=== PATIENT | male | born 1980 | race Caucasian/White ===

== ENCOUNTER 2018-01-22 13:40 | Emergency (ER) | payer MEDICAID ==
[~2018-01-22] VITALS: Ht 170.2 cm; Wt 79.4 kg
[~2018-01-22 13:40] MED LIST: KEFLEX250 MG PO; LITHIUM CARBON300 M3 PO; PROTONIX40 M1 PO; SERTRALINE HCL50 MG PO; SYNTHROID100 MCG PO
[2018-01-22] MEDS ORDERED: TOBRADEX EYE DRO5 ML INTRAOCULR (14:09)
[2018-01-22 14:22] VITALS: BP 111/73
== END 2018-01-22 14:24 | disposition home or self-care (01) ==
LOC: M.ERS 13:40
DX: S05.02XA Injury of conjunctiva and corneal abrasion without foreign body, left eye, initial encounter (principal); Z88.0 Allergy status to penicillin; X58.XXXA Exposure to other specified factors, initial encounter; Y93.89 Activity, other specified; Y92.89 Other specified places as the place of occurrence of the external cause; Y99.8 Other external cause status

== ENCOUNTER 2018-10-09 22:58 | Emergency (ER) | payer MEDICAID ==
[~2018-10-09] VITALS: Ht 177.8 cm; Wt 94.5 kg
[~2018-10-09 22:58] MED LIST changes: +TOBRADEX EYE DRO5 ML INTRAOCULR
[2018-10-09 23:25] LABS: HEMATOCRIT 40.4 % (42.0-52.0); HEMOGLOBIN 13.5 gm/dL (14.0-18.0); MCH 29.3 pg (26.0-34.0); MCHC 33.4 g/dL (28.0-37.0); MCV 87.6 fL (80.0-100.0); MPV 8.2 fl. (7.2-11.1); RBC 4.61 mil/uL (4.50-6.00); RDW-CV 13.4 % (10.5-14.5); WBC 5.4 thou/uL (4.0-11.0)
[2018-10-09 23:46] LABS: URINE BILIRUBIN NEGATIVE (Negative); URINE BLOOD NEGATIVE (Negative); URINE CLARITY CLEAR; URINE COLOR YELLOW; URINE GLUCOSE-RANDOM NEGATIVE (Negative); URINE KETONES NEGATIVE (Negative); URINE LEUKOCYTES NEGATIVE (Negative); URINE NITRITE NEGATIVE (Negative); URINE PROTEIN NEGATIVE (Negative); URINE SPECIFIC GRAVITY <= 1.005 (1.005-1.030); URINE UROBILINOGEN 0.2 E.U./dl (0.2-1.0)
[2018-10-10 00:02] LABS: SALICYLATE < 2.8 mg/dL (2.8-20.0)
[2018-10-10 00:03] LABS: AMP/METHAMP Negative (Negative); BARBITURATES Negative (Negative); BENZODIAZEPINES Negative (Negative); COCAINE Negative (Negative); METHADONE Negative (Negative); OPIATES Negative (Negative); PCP Negative (Negative); THC Negative (Negative)
[2018-10-10 00:03] LABS: ACETAMINOPHEN < 2 ug/mL (10-30); ALCOHOL < 10 mg/dL (<10)
[2018-10-10 00:14] LABS: CALCIUM 8.5 mg/dL (8.5-10.1); CREATININE 1.1 mg/dL (0.6-1.3); POTASSIUM 3.7 mmol/L (3.5-5.1)
[2018-10-10 00:19] LABS: ALBUMIN 3.7 g/dL (3.4-5.0); TOTAL BILIRUBIN 0.6 mg/dL (<0.1-1.0); TOTAL PROTEIN 6.7 g/dL (6.4-8.2)
[2018-10-10 02:54] VITALS: BP 142/80
--- NOTE | 2018-10-10 11:10 | EKG ---
[place] [address] ELECTROCARDIOGRAM REPORT Name: KEITH TRIPATHI Room: [facility]#: [id number] Admission: 10/09/18 Attend Phys: Discharge: 10/10/18 Date of : 84 Report #: [id number] THIS REPORT FOR: //name// [facility] ED Test Date: 2018-10-09 Test Time: 23:42:22 Pat Name: KEITH TRIPATHI Department: Room: Gender: M [employer]: MATI : 1980 Requested By: Sis Tompkins Order Number: [id number] MD: Ruben Reich Measurements Intervals [place] Rate: 87 P: 6 AK: 176 QRS: -18 QRSD: 110 T: 6 QT: 405 QTc: 488 Interpretive Statements Sinus rhythm Borderline left axis deviation Borderline T wave abnormalities Borderline prolonged QT interval No previous ECG available for comparison Electronically Signed On 10-10-2018 11:10:29 DIE PRESSER by Ruben Reich [email or web address] <ELECTRONICALLY SIGNED> By: Ruben Reich MD, [facility] 10/10/18 1110 41 41 Ruben Reich MD, [facility] /EPI
== END 2018-10-10 02:55 | disposition home or self-care (01) ==
LOC: M.ERS 22:58
PROVIDERS: Personal Emergency Response Attendant
DX: S00.83XA Contusion of other part of head, initial encounter (principal); S00.81XA Abrasion of other part of head, initial encounter; F32.9 Major depressive disorder, single episode, unspecified; F41.9 Anxiety disorder, unspecified; K21.9 Gastro-esophageal reflux disease without esophagitis; Z88.0 Allergy status to penicillin; W22.01XA Walked into wall, initial encounter; Y93.89 Activity, other specified; Y92.009 Unspecified place in unspecified non-institutional (private) residence as the place of occurrence of the external cause; Y99.8 Other external cause status

== ENCOUNTER 2018-11-13 23:40 | Emergency (ER) | payer MEDICAID ==
[~2018-11-13] VITALS: Ht 177.8 cm; Wt 95.3 kg
[2018-11-14 00:11] LABS: HEMATOCRIT 41.5 % (42.0-52.0); HEMOGLOBIN 13.9 gm/dL (14.0-18.0); MCH 29.3 pg (26.0-34.0); MCHC 33.4 g/dL (28.0-37.0); MCV 87.7 fL (80.0-100.0); MPV 7.8 fl. (7.2-11.1); RBC 4.73 mil/uL (4.50-6.00); WBC 5.8 thou/uL (4.0-11.0)
[2018-11-14 00:18] LABS: URINE BILIRUBIN NEGATIVE (Negative); URINE BLOOD NEGATIVE (Negative); URINE CLARITY CLEAR; URINE COLOR YELLOW; URINE GLUCOSE-RANDOM NEGATIVE (Negative); URINE KETONES NEGATIVE (Negative); URINE LEUKOCYTES NEGATIVE (Negative); URINE NITRITE NEGATIVE (Negative); URINE PROTEIN NEGATIVE (Negative); URINE SPECIFIC GRAVITY <= 1.005 (1.005-1.030); URINE UROBILINOGEN 0.2 E.U./dl (0.2-1.0)
[2018-11-14 00:18] LABS: CREATININE 0.9 mg/dL (0.6-1.3); POTASSIUM 3.4 mmol/L (3.5-5.1)
[2018-11-14 00:22] LABS: ALBUMIN 3.8 g/dL (3.4-5.0); SALICYLATE < 2.8 mg/dL (2.8-20.0); TOTAL BILIRUBIN 0.4 mg/dL (<0.1-1.0); TOTAL PROTEIN 7.2 g/dL (6.4-8.2)
[2018-11-14 00:24] LABS: AMP/METHAMP Negative (Negative); BARBITURATES Negative (Negative); BENZODIAZEPINES Negative (Negative); COCAINE Negative (Negative); METHADONE Negative (Negative); OPIATES Negative (Negative); PCP Negative (Negative); THC Negative (Negative)
[2018-11-14 00:26] LABS: ACETAMINOPHEN < 2 ug/mL (10-30); ALCOHOL < 10 mg/dL (<10)
[2018-11-14 04:10] VITALS: BP 126/97
== END 2018-11-14 04:10 | disposition home or self-care (01) ==
LOC: M.ERS 23:40
PROVIDERS: Personal Emergency Response Attendant
DX: F98.9 Unspecified behavioral and emotional disorders with onset usually occurring in childhood and adolescence (principal); F32.9 Major depressive disorder, single episode, unspecified; F41.9 Anxiety disorder, unspecified; K21.9 Gastro-esophageal reflux disease without esophagitis; Z88.0 Allergy status to penicillin

== ENCOUNTER 2018-12-29 00:25 | Emergency (ER) | payer MEDICAID ==
[~2018-12-29] VITALS: Ht 165.1 cm; Wt 81.7 kg
[~2018-12-29 00:25] MED LIST changes: +BENZTROPINE MES1 MG PO; +CLONAZEPAM 1 MG1 M1 PO; +COLACE100 MG PO; +LAMICTAL XR100 MG PO; +LOXAPINE5 MG PO; +SYNTHROID100 MC1 PO; -SYNTHROID100 MCG PO; +TRAZODONE HCL50 MG PO
[2018-12-29 00:37] VITALS: BP 147/89
== END 2018-12-29 01:05 | disposition home or self-care (01) ==
LOC: M.ERS 00:25
DX: S61.511A Laceration without foreign body of right wrist, initial encounter (principal); F69 Unspecified disorder of adult personality and behavior; F32.9 Major depressive disorder, single episode, unspecified; F41.9 Anxiety disorder, unspecified; K21.9 Gastro-esophageal reflux disease without esophagitis; Z88.0 Allergy status to penicillin; W26.8XXA Contact with other sharp object(s), not elsewhere classified, initial encounter; Y93.89 Activity, other specified; Y92.89 Other specified places as the place of occurrence of the external cause; Y99.8 Other external cause status

== ENCOUNTER 2019-01-14 16:06 | Emergency (ER) | payer MEDICAID ==
[~2019-01-14] VITALS: Ht 172.7 cm; Wt 88.9 kg
[2019-01-14 16:27] LABS: ABSOLUTE EOSINOPHILS 0.3 thou/uL (0.0-0.7); ABSOLUTE LYMPHOCYTES 0.8 thou/uL (0.8-5.3); ABSOLUTE MONOCYTES 0.4 thou/uL (0.0-1.2); ABSOLUTE NEUTROPHILS 4.3 thou/uL (1.6-8.1); BASOPHILS 0.6 %; EOSINOPHILS 5.5 %; HEMATOCRIT 37.9 % (42.0-52.0); HEMOGLOBIN 12.4 gm/dL (14.0-18.0); LYMPHOCYTES 14.1 %; MCH 27.1 pg (26.0-34.0); MCHC 32.8 g/dL (28.0-37.0); MCV 82.7 fL (80.0-100.0); MONOCYTES 7.4 %; MPV 8.1 fl. (7.2-11.1); NUCLEATED RBCS 0 /100WBC; PLATELET COUNT* 234 thou/uL (150-400); POLYS 72.4 %; RBC 4.58 mil/uL (4.50-6.00); RDW-CV 13.4 % (10.5-14.5)
[2019-01-14 16:33] LABS: PROTIME 10.7 Seconds (9.20-11.50)
[2019-01-14 16:37] LABS: ALBUMIN 3.4 g/dL (3.4-5.0); CREATININE 0.8 mg/dL (0.6-1.3); POTASSIUM 3.9 mmol/L (3.5-5.1); TOTAL BILIRUBIN 0.6 mg/dL (<0.1-1.0)
[2019-01-14] MEDS ORDERED: IBUPROFEN 800800 M1 PO (17:12)
[2019-01-14 18:55] VITALS: BP 136/96
== END 2019-01-14 18:55 | disposition short-term general hospital (02) ==
LOC: M.ERS 16:06
PROVIDERS: Personal Emergency Response Attendant
DX: S00.03XA Contusion of scalp, initial encounter (principal); S22.42XA Multiple fractures of ribs, left side, initial encounter for closed fracture; F32.9 Major depressive disorder, single episode, unspecified; F41.9 Anxiety disorder, unspecified; K21.9 Gastro-esophageal reflux disease without esophagitis; Z88.0 Allergy status to penicillin; W22.01XA Walked into wall, initial encounter; Y93.89 Activity, other specified; Y92.89 Other specified places as the place of occurrence of the external cause; Y99.8 Other external cause status